=== PATIENT | female | born 1955 | race Caucasian/White ===

== ENCOUNTER 2016-11-14 15:22 | Emergency (ER) | payer OTHER ==
[2016-11-14 15:29] VITALS: RESP 16
--- NOTE | 2016-11-14 15:43 | CPEKG ---
Heart Rate: 59 RR Interval: 1017 P-R Interval: 132 QRSD Interval: 86 QT Interval: 448 QTC Interval: 444 P [place]: 56 QRS [place]: 23 T Wave [place]: -41 EKG Severity - NORMAL ECG - EKG Impression: SINUS RHYTHM EKG Impression: Nonspecific T-wave inversion unchanged from 2011 Electronically Signed By: Nate Barron 14-Nov-2016 15:55:19
[2016-11-14] MEDS ORDERED: NS 1,000 ML IV ONE (15:50)
[2016-11-14] MEDS ORDERED: ASPIRIN 81 MG CHEWABLE TAB PO ONE (15:50)
--- NOTE | 2016-11-14 15:54 | EDPHY ---
H & P Stated Complaint: Intermittant chest pain for 3 days. Feels "heavy" on chest. Time Seen by Provider: 11/14/16 15:41 HPI/ROS: CHIEF COMPLAINT: Chest pain HISTORY OF PRESENT ILLNESS: The patient is a 61-year-old female who comes to the emergency department complaining of midsternal chest pain that radiates to her left neck. The episodes are brief approximately 2 seconds to 20 seconds. She has had about 12 of the episodes today. They began on Monday and have been increasing in frequency since that time. She also feels short of breath with mild exertion. She did have a viral type infection 1 month ago from which she successfully recovered. Her pain is not positional. It is not worsened by eating. She has not felt nauseous. She is not diaphoretic. She denies lightheadedness or palpitations. REVIEW OF SYSTEMS: Constitutional: denies: chills, fever, recent illness, recent injury EENTM: denies: blurred vision, double vision, nose congestion Respiratory: denies: cough, shortness of breath Cardiac: See HPI Gastrointestinal/Abdominal: denies: abdominal pain, diarrhea, nausea, vomiting, blood streaked stools Genitourinary: denies: dysuria, frequency, hematuria, pain Musculoskeletal: denies: joint pain, muscle pain Skin: denies: lesions, rash, jaundice, bruising Neurological: denies: headache, numbness, paresthesia, tingling, dizziness, weakness Hematologic/Lymphatic: denies: blood clots, easy bleeding, easy bruising Immunologic/allergic: denies: HIV/AIDS, transplant EXAM: GENERAL: Well-appearing, well-nourished and in no acute distress. HEAD: Atraumatic, normocephalic. EYES: Pupils equal round and reactive to light, extraocular movements intact, sclera anicteric, conjunctiva are normal. ENT: TMs normal, nares patent, oropharynx clear without exudates. Moist mucous membranes. NECK: Normal range of motion, supple without lymphadenopathy or JVD. LUNGS: Breath sounds clear to auscultation bilaterally and equal. No wheezes rales or rhonchi. HEART: Regular rate and rhythm without murmurs, rubs or gallops. ABDOMEN: Soft, nontender, normoactive bowel sounds. No guarding, no rebound. No masses appreciated. BACK: No CVA tenderness, no spinal tenderness, step-offs or deformities EXTREMITIES: Normal range of motion, no pitting or edema. No clubbing or cyanosis. NEUROLOGICAL: Cranial nerves II through XII grossly intact. Normal speech, normal gait. 5/5 strength, normal movement in all extremities, normal sensation PSYCH: Normal mood, normal affect. SKIN: Warm, dry, normal turgor, no visible rashes or lesions. Source: Patient Exam Limitations: No limitations - Personal History Tetanus Vaccine Date: < 10 YEARS - Medical/Surgical History Hx Asthma: No Hx Chronic Respiratory Disease: No Hx Diabetes: No Hx Cardiac Disease: No Hx Renal Disease: No Hx Cirrhosis: No Hx Alcoholism: No Hx HIV/AIDS: No Hx Splenectomy or Spleen Trauma: No Other PMH: DVT 1987 Provoked by . - Family History Significant Family History: Heart disease, Hypertension - Social History Smoking Status: Former smoker Alcohol Use: Sober Drug Use: None Constitutional: Initial Vital Signs Temperature (C) 36.5 C 11/14/16 15:25 Heart Rate 62 11/14/16 15:25 Respiratory Rate 16 11/14/16 15:25 Blood Pressure 111/68 11/14/16 15:25 O2 Sat (%) 96 11/14/16 15:25 O2 Delivery Mode Room Air Allergies/Adverse Reactions: No Known Allergies Allergy (Verified 06/28/16 15:40) Home Medications: Medication Instructions Recorded Juice Plus 08/06/12 Levoxyl Dose Unk 08/06/12 Ranitidine Dose Unk 08/06/12 LORAZEPAM 03/28/16 Miralax 17 gm (*) 03/28/16 ZOLPIDEM TARTRATE 03/28/16 Medical Decision Making - Diagnostics EKG Interpretation: An EKG obtained and was read and documented in trace view. Please see trace view for full reading and report. Sinus rhythm, nonspecific T-wave inversions in lead 3, V1, V3 V4, unchanged from 2012. Imaging: X-ray: chest x-ray was obtained. I viewed the images myself on the PACS system. My interpretation of the images is: negative for acute disease . The radiologist interpretation is negative. ED Course/Re-evaluation: We discussed the patient's initial lab work and chest x-ray. She is reassured. Offered admission versus 3 hour troponin in the emergency department. The patient would not like to stay but will stay for 3 or troponin. Her HEART score is 3 putting her at low risk. if the 2nd troponin is negative that would put her at less than 1% risk for significant cardiac sequela and she is safe to follow up with her primary care physician. 8:30 p.m. the patient is well appearing. She is asymptomatic. She does occasionally still have fleeting chest pain. Vital signs remained stable. 2nd troponin is negative. She is eager to go home. She understands the risks involved. She will follow up with Vicente on Monday or . We discussed indications for returning sooner. She and family agree with this plan. I will also have her take Aleve or ibuprofen to treat for possible pericarditis symptoms considering her recent viral infection. Differential Diagnosis: Partial list of the Differential diagnosis considered include but were not limited to; chest pain, pericarditis, pleurisy and although unlikely based on the history and physical exam, I also considered pneumonia, PE, acute coronary disease. I discussed these differential diagnoses and the plan with the patient as well as the usual and expected course. The patient understands that the diagnosis is provisional and that in medicine we are not always correct and that further workup is often warranted. Usual and customary warnings were given. All of the patient's questions were answered. The patient was instructed to return to the emergency department should the symptoms at all worsen or return, otherwise to followup with the physician as we discussed. - Data Points Laboratory Results: Laboratory Results 11/14/16 15:40 11/14/16 15:40 Medications Given: Discontinued Medications Aspirin (Aspirin) 324 mg PO EDNOW ONE Stop: 11/14/16 15:51 Last Admin: 11/14/16 16:00 Dose: 324 mg Sodium Chloride (Ns) 1,000 mls @ 0 mls/hr IV ONCE ONE PRN Reason: Wide Open Stop: 11/14/16 15:51 Last Admin: 11/14/16 16:00 Dose: 1,000 mls Departure - Departure Disposition: Home, Routine, Self-Care Clinical Impression: Chest pain Qualifiers: Chest pain type: unspecified Qualified Code(s): R07.9 - Chest pain, unspecified Condition: Fair Instructions: Chest Pain (ED) Referrals: Celine Kelsey MD [Primary Care Provider] - 2-3 days without fail
[2016-11-14 15:56] LABS: % IMMATURE GRANULYOCYTES 0.3 % (0.0-1.1); ABSOLUTE IMMATURE GRANULOCYTES 0.02 10^3/uL (0.00-0.10); ADD DIFF? NO; ADD MORPH? NO; ADD SCAN? NO; ATYPICAL LYMPHOCYTE FLAG 40 (0-99); FRAGMENT RBC FLAG 0 (0-99); HEMOGLOBIN 13.9 g/dL (12.6-16.3); LEFT SHIFT FLG 0 (0-99); LIPEMIA HEMOLYSIS FLAG 90 (0-99); MEAN CELL HEMOGLOBIN 30.8 pg (27.9-34.1); MEAN CELL HEMOGLOBIN CONCENTR. 33.9 g/dL (32.4-36.7); MEAN CELL VOLUME 90.9 fL (81.5-99.8); MEAN PLATELET VOLUME 9.2 fL (8.7-11.7); PLATELET CLUMPS FLAG 10 (0-99); PLATELET COUNT 226 10^3/uL (150-400); RED BLOOD CELL COUNT 4.51 10^6/uL (4.18-5.33); RED CELL DISTRIBUTION WIDTH 12.5 % (11.5-15.2)
[2016-11-14 16:07] LABS: INR 1.05 (0.83-1.16); PROTIME(PATIENT) 13.6 SEC (12.0-15.0)
[2016-11-14 16:08] LABS: ANION GAP 12 mEq/L (8-16); APTT 25.2 SEC (23.0-38.0); CARBON DIOXIDE 24 mEq/l (22-31); CHLORIDE 104 mEq/L (97-110); CREATININE 0.9 mg/dL (0.6-1.0); GLOMERULAR FILTRATION RATE > 60; GLUCOSE 88 mg/dL (70-100); POTASSIUM 4.1 mEq/L (3.5-5.2); SODIUM 140 mEq/L (134-144)
[2016-11-14 16:20] LABS: TROPONIN I < 0.012 ng/mL (0-0.034)
[2016-11-14 20:53] VITALS: BP 118/56; PULSE 53; TEMP 98.2; O2SAT 94
== END 2016-11-14 20:55 | disposition home or self-care (01) ==
DX: R07.2 Precordial pain (principal); Z87.891 Personal history of nicotine dependence

== ENCOUNTER 2016-11-28 15:48 | Emergency (ER) | payer OTHER ==
--- NOTE | 2016-11-28 17:17 | EDPHY ---
H & P Time Seen by Provider: 11/28/16 17:02 HPI/ROS: CHIEF COMPLAINT: Bright red blood per rectum HISTORY OF PRESENT ILLNESS: 61-year-old female presents to the emergency department by private vehicle complaining of blood in her stool that started today. The patient states that she had some epigastric abdominal pain. She was nauseous earlier today although she did not vomit. She has not noticed any melena. She states that even when she urinated today she noted bright red blood "dripping" from her rectum. She denies back pain. She has been having ongoing chest pain and shortness of breath over last 1 week. She was seen in the emergency department 1 week ago and had a negative workup and was discharged. Denies reported trauma. REVIEW OF SYSTEMS: Constitutional: No fever, no chills. Eyes: No double or blurry vision. ENT: No sore throat. Respiratory: No cough, no shortness of breath. Cardiac: No chest pain. Gastrointestinal: Epigastric abdominal pain. No vomiting or diarrhea. Genitourinary: No dysuria. Musculoskeletal: No neck or back pain. Skin: No rashes. Neurological: No headache. Past Medical/Surgical History: Perez's esophagus, GERD, peptic ulcer disease Social History: and lives in [place] Smoking Status: Former smoker Physical Exam: General Appearance: Alert, no distress. 121/70, heart rate 65, afebrile and nontoxic-appearing. Eyes: Pupils equal and round. Extraocular motions are all intact. ENT: Mouth: Mucous membranes moist. Respiratory: No wheezing, rhonchi, or rales, lungs are clear to auscultation. Cardiovascular: Regular rate and rhythm. Gastrointestinal: Abdomen is soft. Mild tenderness with palpation in the epigastric area. No rebound, guarding or masses noted. No CVA tenderness bilaterally. Rectal exam: Performed with nurse, Dori, at bedside. Normal sphincter tone. 2 small external hemorrhoids which were not thrombosed is noted. She had normal colored stool. Occult blood testing is pending. Neurological: Alert and oriented x 3, cranial nerves II through XII grossly intact Skin: Warm and dry, no rashes. Musculoskeletal: Nontender to palpate along the cervical, thoracic or lumbar spine. Neck is supple. Extremities: Full range of motion and no peripheral edema. Psychiatric: Patient is oriented X 3, there is no agitation. Constitutional: Initial Vital Signs Temperature (C) 36.6 C 11/28/16 16:07 Heart Rate 65 11/28/16 16:07 Respiratory Rate 18 11/28/16 16:07 Blood Pressure 121/70 H 11/28/16 16:07 O2 Sat (%) 97 11/28/16 16:07 O2 Delivery Mode Room Air Allergies/Adverse Reactions: No Known Allergies Allergy (Verified 06/28/16 15:40) Home Medications: Medication Instructions Recorded Juice Plus 08/06/12 Levoxyl Dose Unk 08/06/12 Ranitidine Dose Unk 08/06/12 LORAZEPAM 03/28/16 Miralax 17 gm (*) 03/28/16 ZOLPIDEM TARTRATE 03/28/16 Medical Decision Making ED Course/Re-evaluation: 61-year-old female presents to the emergency department with blood in her stool. The patient had an IV established and laboratory studies were all within normal limits. CBC was normal specifically hematocrit and hemoglobin were within normal limits. Her electrolytes were unremarkable. She had guaiac- positive stool. She was kept on a monitor for her time in the emergency department. She is hemodynamically stable. She is not hypotensive or tachycardic. She has not had any vomiting in the emergency department. I spoke with the on-call hoop rolls operator, Dr. Yash Laureano who will see this patient in follow-up. The patient already had a scheduled appointment on December 16, however he stated that he would have her call the office and she could get a more timely appointment. Patient was encouraged to return if she developed abdominal pain, recurring bright red brisk bleeding, if she felt lightheaded or dizzy, or if she felt worse in any way. Differential Diagnosis: Including but not limited to GI bleed, hemorrhoids, hemodynamic instability, electrolyte abnormality - Data Points Laboratory Results: Laboratory Results 11/28/16 17:10 11/28/16 17:10 11/28/16 11/28/16 11/28/16 17:10 17:10 17:10 WBC RBC Hgb Hct MCV MCH MCHC RDW Plt Count MPV Neut % (Auto) Lymph % (Auto) [place] % (Auto) Eos % (Auto) Baso % (Auto) Nucleat RBC Rel Count Absolute Neuts (auto) Absolute Lymphs (auto) Absolute Monos (auto) Absolute Eos (auto) Absolute Basos (auto) Absolute Nucleated RBC Immature Gran % Immature Gran # PT INR APTT Sodium 141 mEq/L mEq/L (134-144) Potassium 3.9 mEq/L mEq/L (3.5-5.2) Chloride 102 mEq/L mEq/L (97-110) Carbon Dioxide 28 mEq/l mEq/l (22-31) Anion Gap 11 mEq/L mEq/L (8-16) BUN 16 mg/dL mg/dL (7-23) Creatinine 0.9 mg/dL mg/dL (0.6-1.0) Estimated GFR > 60 Glucose 90 mg/dL mg/dL (70-100) Calcium 10.1 mg/dL mg/dL (8.5-10.4) Total Bilirubin 0.9 mg/dL mg/dL (0.1-1.4) Conjugated Bilirubin 0.2 mg/dL mg/dL (0.0-0.5) Unconjugated Bilirubin 0.7 mg/dL mg/dL (0.0-1.1) AST 33 IU/L IU/L (14-46) ALT 36 IU/L IU/L (9-52) Alkaline Phosphatase 60 IU/L IU/L (38-126) Total Protein 8.1 g/dL g/dL (6.3-8.2) Albumin 4.7 g/dL g/dL (3.5-5.0) Lipase 137.0 IU/L IU/L (23-300) Stool Occult Bld Scrn POSITIVE H (NEGATIVE) 11/28/16 11/28/16 17:10 17:10 WBC 8.79 10^3/uL 10^3/uL (3.80-9.50) RBC 4.56 10^6/uL 10^6/uL (4.18-5.33) Hgb 14.3 g/dL g/dL (12.6-16.3) Hct 42.0 % % (38.0-47.0) MCV 92.1 fL fL (81.5-99.8) MCH 31.4 pg pg (27.9-34.1) MCHC 34.0 g/dL g/dL (32.4-36.7) RDW 12.7 % % (11.5-15.2) Plt Count 273 10^3/uL 10^3/uL (150-400) MPV 9.4 fL fL (8.7-11.7) Neut % (Auto) 60.0 % % (39.3-74.2) Lymph % (Auto) 28.6 % % (15.0-45.0) [place] % (Auto) 7.2 % % (4.5-13.0) Eos % (Auto) 3.4 % % (0.6-7.6) Baso % (Auto) 0.5 % % (0.3-1.7) Nucleat RBC Rel Count 0.0 % % (0.0-0.2) Absolute Neuts (auto) 5.28 10^3/uL 10^3/uL (1.70-6.50) Absolute Lymphs (auto) 2.51 10^3/uL 10^3/uL (1.00-3.00) Absolute Monos (auto) 0.63 10^3/uL 10^3/uL (0.30-0.80) Absolute Eos (auto) 0.30 10^3/uL 10^3/uL (0.03-0.40) Absolute Basos (auto) 0.04 10^3/uL 10^3/uL (0.02-0.10) Absolute Nucleated RBC 0.00 10^3/uL 10^3/uL (0-0.01) Immature Gran % 0.3 % % (0.0-1.1) Immature Gran # 0.03 10^3/uL 10^3/uL (0.00-0.10) PT 13.8 SEC SEC (12.0-15.0) INR 1.07 (0.83-1.16) APTT 25.0 SEC SEC (23.0-38.0) Sodium Potassium Chloride Carbon Dioxide Anion Gap BUN Creatinine Estimated GFR Glucose Calcium Total Bilirubin Conjugated Bilirubin Unconjugated Bilirubin AST ALT Alkaline Phosphatase Total Protein Albumin Lipase Stool Occult Bld Scrn Medications Given: Discontinued Medications Pantoprazole Sodium 40 mg/ (Sodium Chloride) 100 mls @ 200 mls/hr IV EDNOW ONE Stop: 11/28/16 17:42 Last Admin: 11/28/16 17:36 Dose: Not Given Sodium Chloride (Ns) 1,000 mls @ 0 mls/hr IV ONCE ONE PRN Reason: Wide Open Stop: 11/28/16 17:15 Last Admin: 11/28/16 17:39 Dose: 1,000 mls Departure - Departure Disposition: Home, Routine, Self-Care Clinical Impression: Guaiac positive stools Abdominal pain Qualifiers: Abdominal location: epigastric Qualified Code(s): R10.13 - Epigastric pain Condition: Good Instructions: Rectal Bleeding (ED), Abdominal Pain (ED) Additional Instructions: Call GI of the [facility] to schedule a sooner appointment. Tell them that you were seen in the emergency department and we spoke with Dr. Yash Laureano who was on -call for GI and he said that they could get to a more timely appointment for follow-up. Please return to the emergency department if you developed worsening abdominal pain, brisk rectal bleeding, if you feel lightheaded or dizzy, or if you feel worse in any way. Referrals: Celine Kelsey MD [Primary Care Provider] - As per Instructions Yash Laureano MD [Medical Doctor] - As per Instructions ([facility] on- call that we spoke with)
[2016-11-28 17:19] LABS: % IMMATURE GRANULYOCYTES 0.3 % (0.0-1.1); ABSOLUTE IMMATURE GRANULOCYTES 0.03 10^3/uL (0.00-0.10); ADD DIFF? NO; ADD MORPH? NO; ADD SCAN? NO; ATYPICAL LYMPHOCYTE FLAG 10 (0-99); FRAGMENT RBC FLAG 0 (0-99); HEMOGLOBIN 14.3 g/dL (12.6-16.3); LEFT SHIFT FLG 0 (0-99); LIPEMIA HEMOLYSIS FLAG 90 (0-99); MEAN CELL HEMOGLOBIN 31.4 pg (27.9-34.1); MEAN CELL VOLUME 92.1 fL (81.5-99.8); MEAN PLATELET VOLUME 9.4 fL (8.7-11.7); PLATELET CLUMPS FLAG 30 (0-99); PLATELET COUNT 273 10^3/uL (150-400); RED BLOOD CELL COUNT 4.56 10^6/uL (4.18-5.33); RED CELL DISTRIBUTION WIDTH 12.7 % (11.5-15.2)
[2016-11-28] MEDS ORDERED: NS 100 ML BAG IV ONE (17:31)
[2016-11-28] MEDS ORDERED: PANTOPRAZOLE SODIUM 40 MG VIAL ONE (17:32)
[2016-11-28 17:33] LABS: ALBUMIN 4.7 g/dL (3.5-5.0); BILIRUBIN,TOTAL 0.9 mg/dL (0.1-1.4); BILIRUBIN-CONJUGATED 0.2 mg/dL (0.0-0.5); BILIRUBIN-UNCONJUGATED 0.7 mg/dL (0.0-1.1); TOTAL PROTEIN 8.1 g/dL (6.3-8.2)
[2016-11-28] MEDS: PANTOPRAZOLE SODIUM 40 MG in NS 100 ML IV ONE (17:36)
[2016-11-28 17:39] LABS: ANION GAP 11 mEq/L (8-16); CALCIUM 10.1 mg/dL (8.5-10.4); CARBON DIOXIDE 28 mEq/l (22-31); CHLORIDE 102 mEq/L (97-110); CREATININE 0.9 mg/dL (0.6-1.0); GLOMERULAR FILTRATION RATE > 60; GLUCOSE 90 mg/dL (70-100); POTASSIUM 3.9 mEq/L (3.5-5.2); SODIUM 141 mEq/L (134-144)
[2016-11-28] MEDS: NS 1,000 ML IV ONE (17:39)
[2016-11-28 17:40] LABS: INR 1.07 (0.83-1.16); PROTIME(PATIENT) 13.8 SEC (12.0-15.0)
[2016-11-28 18:40] VITALS: BP 105/90; PULSE 51; RESP 16; TEMP 98.1; O2SAT 100
== END 2016-11-28 18:34 | disposition home or self-care (01) ==
DX: R10.13 Epigastric pain (principal); R19.5 Other fecal abnormalities; Z87.891 Personal history of nicotine dependence

== ENCOUNTER → 2017-08-24 | Outpatient (CLI) | payer OTHER | LOC: FIMAGING 10:55 | PROVIDERS: ATTEND Internal Medicine | DX: Z12.31 Encounter for screening mammogram for malignant neoplasm of breast (principal); Z80.3 Family history of malignant neoplasm of breast | CPT/HCPCS: G0202 ==

== ENCOUNTER → 2018-08-30 | Outpatient (CLI) | payer OTHER | LOC: FIMAGING 10:26 | PROVIDERS: ATTEND Internal Medicine | DX: Z12.31 Encounter for screening mammogram for malignant neoplasm of breast (principal); Z80.3 Family history of malignant neoplasm of breast ==